=== PATIENT | female | born 1965 | race Caucasian/White ===

== ENCOUNTER 2020-02-16 09:36 | Outpatient (CLI) | payer OTHER, SELFPAY ==
[2020-02-17 10:39] LABS: COVID-19 RT-PCR Result NEGATIVE (Negative)
== END 2020-02-16 09:56 ==
PROVIDERS: Visit Provider Nurse Practitioner Family
DX: Z11.59 Encounter for screening for other viral diseases (principal)
CPT/HCPCS: U0003